=== PATIENT | male | born 1990 | race Caucasian/White ===

== ENCOUNTER 2018-05-14 15:47 | Emergency (ER) | payer OTHER ==
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
[2018-05-14 18:16] VITALS: BP 00/00
== END 2018-05-14 18:14 | disposition home or self-care (01) ==
LOC: ED 15:47
DX: M25.471 Effusion, right ankle (principal); V43.52XA Car driver injured in collision with other type car in traffic accident, initial encounter; Y92.410 Unspecified street and highway as the place of occurrence of the external cause
CPT/HCPCS: 99282

== ENCOUNTER 2018-06-07 18:48 | Emergency (ER) | payer OTHER ==
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
[2018-06-07 19:00] VITALS: BP 131/70
[2018-06-07] MEDS ORDERED: Cyclobenzaprine TAB* 10 MG PO ONE (19:08)
[2018-06-07] MEDS ORDERED: Ketorolac INJ* 60 MG/2 ML VIAL IM ONE (19:08)
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
--- NOTE | 2018-06-07 19:29 | RAD ---
INDICATION: Back pain COMPARISON: Thoracic spine May 19, 2018 TECHNIQUE: Routine 2 view imaging was performed FINDINGS: Bones: There are no acute bony findings. There are no significant osteoarthritic findings. Alignment: There is mild to moderate kyphoscoliosis Disc spaces: The disc spaces are well-maintained Soft tissues: There are no soft tissue abnormalities. IMPRESSION: KYPHOSCOLIOSIS. NO ACUTE FINDINGS
--- NOTE | 2018-06-07 19:29 | RAD ---
INDICATION: Back pain COMPARISON: None TECHNIQUE: Routine PA, lateral, and oblique imaging was performed . FINDINGS: Bones: There are no acute bony findings. There are no significant osteoarthritic findings. Alignment: Normal Disc spaces: There is minor levoscoliosis Soft tissues: There are no soft tissue abnormalities. IMPRESSION: MINOR LEVOSCOLIOSIS. NO ACUTE BONY FINDINGS.
== END 2018-06-07 19:45 | disposition home or self-care (01) ==
LOC: UCEAST 18:48
DX: M54.89 Other dorsalgia (principal)
CPT/HCPCS: 72070; 72100; 96372; 99212; A9270-GY; G0463; J1885

== ENCOUNTER → 2018-09-02 12:47 | Emergency (ER) | payer OTHER ==
[~2018-09-02 12:47] MED LIST: Ketorolac INJ* 60 MG/2 ML VIAL IM ONE; predniSONE TAB* 20 MG PO ONE; traMADol TAB* 50 MG PO ONE
[2018-09-02 13:31] LABS: Hematocrit 47 % (42-52); Hemoglobin 15.8 g/dl (14.0-18.0); Mean Corpuscular HGB Conc 34 g/dl (31-36); Mean Corpuscular Hemoglobin 30 pg (27-31); Mean Corpuscular Volume 89 fL (80-94); Platelet Count 182 10^3/ul (150-450); Red Cell Distribution Width 13 % (10.5-15); White Blood Count 13.6 10^3/ul (3.5-10.8)
[2018-09-02 13:47] LABS: EGFR Non-African American 98.5 (>60)
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
--- NOTE | 2018-09-02 14:33 | RAD ---
CLINICAL HISTORY: frontal sinus tenderness COMPARISON: None TECHNIQUE: Contiguous axial CT images were obtained through the paranasal sinuses, without intravenous contrast, with coronal and sagittal multiplanar reformations. FINDINGS: NASAL CAVITY: Septum: The nasal septum is deviated to the right. Right: Clear Left: Clear SINUSES AND DRAINAGE PATHWAYS: Frontal sinuses: There is an air-fluid within the left frontal sinus. There is mucosal thickening of the frontal sinus. Maxillary sinuses: There is mucosal thickening of the maxillary sinuses bilaterally.. Ethmoid sinuses: There is mucosal thickening of the ethmoid air cells. Ostiomeatal complex: There is effacement of the ostiomeatal unit on the left. Sphenoid sinuses: There is mucosal thickening with an air-fluid level within the sphenoid sinus. Anatomic variations: No significant variations. Orbits: Unremarkable. Anterior cranial fossa: Normal. Other findings: None. IMPRESSION: MODERATE SINUS MUCOSAL INFLAMMATORY DISEASE, WITH AIR-FLUID LEVELS IN THE SPHENOID AND FRONTAL SINUSES . IN THE CORRECT CLINICAL SETTING, THIS MAY REPRESENT ACUTE SINUSITIS
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
[2018-09-02 15:25] VITALS: BP 147/82
== END | disposition home or self-care (01) ==
LOC: ED 12:47
DX: J01.90 Acute sinusitis, unspecified (principal)
CPT/HCPCS: 36415; 70450; 70486; 80048; 85027; 86140; 99283; A9270-GY; J1885; J7512

== ENCOUNTER 2019-01-02 21:20 | Emergency (ER) | payer OTHER ==
[2019-01-02 21:30] VITALS: BP 128/88
[2019-01-02] MEDS ORDERED: Ketorolac INJ* 30 MG/ML 1 ML VIAL IM ONE (21:43)
[2019-01-02] MEDS ORDERED: Cyclobenzaprine TAB* 10 MG PO ONE (21:44)
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
--- NOTE | 2019-01-03 19:11 | UC ---
- Progress Note Progress Note: Radiologist reading of left shoulder x-ray from January 02, 2019 read as no acute fracture. Provider interpretation from that same date is the same therefore there is no discrepancy. Course/Dx - Diagnoses Provider Diagnoses: Left shoulder pain, Spasmodic torticollis, Right ear impacted cerumen Discharge - Sign-Out/Discharge Documenting (check all that apply): Patient Departure All imaging exams completed and their final reports reviewed: Yes - Discharge Plan Condition: Stable Disposition: HOME Prescriptions: Carbamide Peroxide 6.5% OTIC* [DEBROX 6.5% Otic*] 5 drop RIGHT EAR BID #1 bottle Cyclobenzaprine TAB* [Flexeril 10 MG TAB*] 10 mg PO TID PRN #20 tab PRN Reason: Spasms - Neck Ibuprofen TAB* [Motrin TAB* 800 MG] 800 mg PO Q6H PRN #30 tab PRN Reason: Pain methylPREDNISolone [Medrol Dosepak 4 MG*] 4 mg PO .SEE SHIRA INSTRUCTION #1 shira Patient Education Materials: Cerumen Impaction (ED), Spasmodic Torticollis (ED) , Shoulder Pain (ED) Forms: *Work Release Referrals: [facility] [Provider Group] - 3 Days Ramsey Mcfadden MD [Primary Care Provider] - 2 Days Additional Instructions: 1-Please take Ibuprofen PO q6-8hrs prn after meals to alleviate pain and swelling. Please start taking ibuprofen PO tomorrow since you were given a Toradol IM inj today. Take Medrol dose shira as directed to alleviate symptoms. 2-Please apply ice, keep your shoulder immobilized with the shoulder sling for 3-4 days and then resume movement slowly. Also use the soft collar to alleviate for comfort on your neck 3- Please f/u with Orthopedic from Sports Medicine or your PCP in 1 week is not improvement of symptoms for further evaluation and treatment. 4- Apply otic drops to help dissolve cerumen as directed below - Billing Disposition and Condition Condition: STABLE Disposition: Home
== END 2019-01-02 22:26 | disposition home or self-care (01) ==
LOC: UCEAST 21:20
DX: M25.512 Pain in left shoulder (principal); G24.3 Spasmodic torticollis; H61.21 Impacted cerumen, right ear
CPT/HCPCS: 96372; 99213; A9270-GY; G0463; J1885

== ENCOUNTER 2019-09-23 16:07 | Emergency (ER) | payer OTHER ==
--- NOTE | 2019-09-23 16:58 | ED ---
Psychiatric Complaint - HPI Summary HPI Summary: Patient is a 28 y/o M presenting to [facility] with complaints of depression and anxiety. Patient states that he does not feel safe but also reports that he has not had thoughts of harming himself. He states that he has been using marijuana frequently and endorses sleep disturbance and decreased appetite. Patient states that he has been admitted to psych unit previously, he does not recall diagnosis. Patient occasionally vapes. He additionally reports that he has engaged in risky sexual activity as well. He declines medications for his reported risky sexual activity. Patient is concerned for UTI as he has had testicular pain. Patient notes that he has been going to the gym twice daily as well. Per triage, "Pt states that he feels that things are out of control and he is doing things that he really shouldn't. Pt has relationship problems with x-girlfriend". Pt does not report any fever, chills, erythema of eyes, sore throat, CP, SOB, cough, abdominal pain, N/V, dysuria, hematuria, myalgia, edema , rash, or dizziness. Home medications and allergies are reviewed. - History Of Current Complaint Chief Complaint: EDMentalHealth Time Seen by Provider: 09/23/19 16:37 Hx Obtained From: Patient Onset/Duration: Still Present Timing: Constant Character: Depressed, Anxious Associated Signs And Symptoms: Positive: Sleep Disturbance, Appetite Change Has Suicidal: Reports: Thoughts - Patient states that he does not feel safe but also reports that he has not had thoughts of harming himself - Allergies/Home Medications Allergies/Adverse Reactions: Allergies Allergy/AdvReac Type Severity Reaction Status Date / Time No Known Allergies Allergy Verified 09/23/19 16:21 Home Medications: Home Medications NK [No Home Medications Reported] 09/23/19 [History Confirmed 09/23/19] PMH/Surg Hx/FS Hx/Imm Hx Endocrine/Hematology History: Denies: Hx Diabetes, Hx Sickle Cell Disease, Hx Thyroid Disease Cardiovascular History: Denies: Hx Hypertension, Hx Pacemaker/ICD Respiratory History: Denies: Hx Asthma, Hx Chronic Obstructive Pulmonary Disease (COPD), Hx Lung Cancer GI History: Denies: Hx Ileostomy, Hx Ulcer History: Denies: Hx Dialysis Sensory History: Denies: Hx Legally Blind, Hx Deafness Opthamlomology History: Denies: Hx Legally Blind Neurological History: Denies: Hx Dementia, Hx Headaches, Hx Migraine Infectious Disease History: No Infectious Disease History: Denies: Hx Hepatitis, Hx Human Immunodeficiency Virus (HIV), Traveled Outside the US in Last 30 Days - Family History Known Family History: Positive: Other - CA Negative: Cardiac Disease, Hypertension, Diabetes, Seizure Disorder - Social History Alcohol Use: Rare Hx Substance Use: No Substance Use Type: Reports: None Hx Tobacco Use: No Smoking Status (MU): Never Smoked Tobacco Review of Systems Negative: Fever, Chills Negative: Erythema Negative: Sore Throat Negative: Chest Pain Negative: Shortness Of Breath, Cough Negative: Abdominal Pain, Vomiting, Nausea Positive: pain - testicular . Negative: dysuria, hematuria Negative: Myalgia, Edema Negative: Rash Neurological: Other - negative - dizziness Positive: Anxious, Depressed All Other Systems Reviewed And Are Negative: Yes Physical Exam - Summary Physical Exam Summary: Constitutional: Well-developed, Well-nourished, Alert. (-) Distressed Skin: Warm, Dry HENT: Normocephalic; Atraumatic Eyes: Conjunctiva normal Neck: Musculoskeletal ROM normal neck. (-) JVD, (-) Stridor, (-) Tracheal deviation Cardio: Rhythm regular, rate normal, Heart sounds normal; Intact distal pulses; The pedal pulses are 2+ and symmetric. Radial pulses are 2+ and symmetric. (-) Murmur Pulmonary/Chest wall: Effort normal. (-) Respiratory distress, (-) Wheezes, (-) Rales Abd: Soft, (-) tenderness, (-) Distension, (-) Guarding, (-) Rebound Musculoskeletal: (-) Edema Lymph: (-) Cervical adenopathy Neuro: Alert, Oriented x3 Psych: Mood and affect Normal Triage Information Reviewed: Yes Vital Signs On Initial Exam: Initial Vitals Temp Pulse Resp BP Pulse Ox 98.3 F 82 20 127/79 98 09/23/19 16:17 09/23/19 16:17 09/23/19 16:17 09/23/19 16:17 09/23/19 16:17 Vital Signs Reviewed: Yes Procedures - Sedation Patient Received Moderate/Deep Sedation with Procedure: No Diagnostics - Vital Signs Vital Signs Temp Pulse Resp BP Pulse Ox 09/23/19 16:17 98.3 F 82 20 127/79 98 - Laboratory Result Diagrams: 09/23/19 17:36 11/01/19 17:36 Lab Statement: Any lab studies that have been ordered have been reviewed, and results considered in the medical decision making process. - Ultrasound TESTICULAR US Ultrasound Interpretation Completed By: Radiologist Summary of Ultrasound Findings: IMPRESSION: Unremarkable scrotal ultrasound. THIS REPORT WAS REVIEWED BY DR. MOSER. Course/Dx - Course Course Of Treatment: Patient is a 28 y/o M presenting to [facility] with complaints of depression and anxiety. Patient states that he does not feel safe but also reports that he has not had thoughts of harming himself. He states that he has been using marijuana frequently and endorses sleep disturbance and decreased appetite. Patient states that he has been admitted to psych unit previously, he does not recall diagnosis. Patient occasionally vapes. He additionally reports that he has engaged in risky sexual activity as well. He declines medications for his reported risky sexual activity. Patient is concerned for UTI as he has had testicular pain. Patient notes that he has been going to the gym twice daily as well. TESTICULAR US IMPRESSION: Unremarkable scrotal ultrasound. Bloodwork was obtained, abnormal values include absolute monos 0.9, glucose 110 , alk phos 33. UA showed trace ketones and positive urobilinogen. Tox screen was negative. Patient is medically cleared for [facility]. Patient is signed out to Dr. Barnett at 2030 09/23/19 pending [facility] and disposition. - Differential Dx/Clinical Impression Provider Diagnosis: Depression Discharge ED - Sign-Out/Discharge Documenting (check all that apply): Sign-Out Patient Signing out patient TO: Delroy Barnett - Discharge Plan Condition: Stable Disposition: HOME Referrals: Ramsey Mcfadden MD [Primary Care Provider] - - Billing Disposition and Condition Condition: STABLE Disposition: Home - Attestation Statements Document Initiated by Scribe: Yes Documenting Scribe: ELSA BARRERA Provider For Whom Kyle is Documenting (Include Credential): CEDRICK MOSER MD Scribe Attestation: ELSA Espinosa scribed for CEDRICK MOSER MD on 09/26/19 at 0832. Scribe Documentation Reviewed: Yes Provider Attestation: The documentation as recorded by the ELSA evans accurately reflects the service I personally performed and the decisions made by me, CEDRICK MOSER MD Status of Scribe Document: Viewed
[2019-09-23 17:46] LABS: ABS Basophils 0.1 10^3/ul (0-0.2); ABS Eosinophils 0.1 10^3/ul (0-0.6); ABS Lymphocytes 1.9 10^3/ul (1.0-4.8); ABS Monocytes 0.9 10^3/ul (0-0.8); ABS Neutrophils 6.9 10^3/ul (1.5-7.7); Eosinophil % 1.3 %; Hematocrit 48 % (42-52); Hemoglobin 15.7 g/dL (14.0-18.0); Lymphocyte % 19.1 %; Mean Corpuscular HGB Conc 33 g/dL (31-36); Mean Corpuscular Hemoglobin 30 pg (27-31); Mean Corpuscular Volume 91 fL (80-94); Mean Platelet Volume 9.4 fL (7.4-10.4); Nucleated Red Blood Cells % 0.1; Platelet Count 195 10^3/uL (150-450); Red Blood Count 5.24 10^6 /uL (4.18-5.48); Red Cell Distribution Width 14 % (10-15); White Blood Count 9.8 10^3/uL (3.5-10.8)
[2019-09-23 18:01] LABS: ALT 47 U/L (7-52); AST 24 U/L (13-39); Albumin 4.7 g/dL (3.2-5.2); Albumin/Globulin Ratio 1.7 (1-3); Alkaline Phosphatase 33 U/L (34-104); Anion Gap 4 mmol/L (2-11); BUN/Creatinine Ratio 9.9 (8-20); Blood Urea Nitrogen 10 mg/dL (6-24); CO2 Carbon Dioxide 28 mmol/L (22-32); Calcium 10.1 mg/dL (8.6-10.3); Chloride 106 mmol/L (101-111); EGFR African American 104.9 (>60); EGFR Non-African American 86.7 (>60); Globulin 2.8 g/dL (2-4); Glucose 110 mg/dL (70-100); Potassium 4.5 mmol/L (3.5-5.0); Sodium 138 mmol/L (135-145); Total Protein 7.5 g/dL (6.4-8.9)
[2019-09-23 18:38] LABS: Urine Appearance Cloudy; Urine Bilirubin Negative (Negative); Urine Blood Negative (Negative); Urine Color Yellow; Urine Glucose Negative (Negative); Urine Ketones Trace (Negative); Urine Nitrite Negative (Negative); Urine Protein Negative (Negative); Urine Specific Gravity 1.024 (1.010-1.030); Urine Urobilinogen Positive (Negative)
[2019-09-23 18:51] LABS: Alcohol < 10 mg/dL (<10); Salicylate < 2.50 mg/dL (<30)
[2019-09-23 19:02] LABS: Urine Benzodiazepine Screen None Detected (None Detect); Urine Opiates Screen None Detected (None Detect)
[2019-09-23 19:04] LABS: TSH (Thyroid Stimulating Horm) 0.79 mcIU/mL (0.34-5.60)
[2019-09-23 19:11] LABS: Acetaminophen < 15 mcg/mL
--- NOTE | 2019-09-23 21:35 | ED ---
Progress - Progress Note Progress Note: Receiving sign-out from Dr. Chou at shift change 1900 pending [facility] and Dispo. [facility] discharged the patient with a diagnosis of unspecified depression disorder, per Dr. Durham, Psychiatry. - Consult/PCP Time Called: 06:00 Course/Dx - Course Course Of Treatment: Receiving sign-out from Dr. Chou at shift change 1900 pending [facility] and Disposition. [facility] discharged the patient with a diagnosis of unspecified depression disorder, per Dr. Durham, Psychiatry. - Diagnoses Provider Diagnoses: Depression Discharge ED - Sign-Out/Discharge Documenting (check all that apply): Patient Departure - Discharge, per [facility] - Discharge Plan Condition: Stable Disposition: HOME Referrals: Ramsey Mcfadden MD [Primary Care Provider] - - Billing Disposition and Condition Condition: STABLE Disposition: Home - Attestation Statements Document Initiated by Kyle: Yes Documenting Scribe: Adal Oliveros Provider For Whom Kyle is Documenting (Include Credential): Delroy Barnett MD Scribe Attestation: Adal Espinosa, coltibed for Delroy Barnett MD on 09/28/19 at 1751. Scribe Documentation Reviewed: Yes Provider Attestation: The documentation as recorded by the Adal evans accurately reflects the service I personally performed and the decisions made by , Delroy Barnett MD Status of Scribe Document: Viewed
[2019-09-23 22:08] VITALS: BP 117/70
== END 2019-09-23 22:07 | disposition home or self-care (01) ==
LOC: ED 16:07
DX: F32.9 Major depressive disorder, single episode, unspecified (principal); F41.9 Anxiety disorder, unspecified
CPT/HCPCS: 36415; 76870; 80053; 80307; 80320; 80329; 81003; 84443; 85025; 99284; G0480

== ENCOUNTER 2019-09-28 14:13 | Emergency (ER) | payer OTHER ==
--- NOTE | 2019-09-28 14:49 | ED ---
Complex/Multi-Sys Presentation - HPI Summary HPI Summary: This patient is a 28 year old M presenting to [facility] via EMS with a chief complaint of lethargy and weakness since last night. Pt states he went to [facility]. Pt did not get a flu shot. The patient rates the pain 3/10 in severity. Symptoms aggravated by nothing. Symptoms alleviated by nothing. Patient reports ABD pain, testicular pain, generalized myalgia, subjective chills, fever, lightheaded, cough, nausea. Patient denies vomiting. Pt occasionally smokes marijuana and restarted cigarette smoking. - History Of Current Complaint Chief Complaint: EDGeneral Time Seen by Provider: 09/28/19 14:24 Hx Obtained From: Patient Onset/Duration: Sudden Onset, Lasting Days - 1, Still Present Timing: Constant Severity Currently: Mild Severity Initially: Mild Aggravating Factor(s): nothing Alleviating Factor(s): nothing Associated Signs And Symptoms: Positive: Weakness, Cough, Nausea, Abdominal Pain , Fever, Other - positive - lethargy, testicular pain, generalized myalgia, subjective chills, lightheaded. Negative: Vomiting - Allergies/Home Medications Allergies/Adverse Reactions: Allergies Allergy/AdvReac Type Severity Reaction Status Date / Time No Known Allergies Allergy Verified 09/28/19 14:37 PMH/Surg Hx/FS Hx/Imm Hx Previously Healthy: No Endocrine/Hematology History: Denies: Hx Diabetes, Hx Sickle Cell Disease, Hx Thyroid Disease Cardiovascular History: Denies: Hx Hypertension, Hx Pacemaker/ICD Respiratory History: Denies: Hx Asthma, Hx Chronic Obstructive Pulmonary Disease (COPD), Hx Lung Cancer GI History: Denies: Hx Ileostomy, Hx Ulcer History: Denies: Hx Dialysis Sensory History: Denies: Hx Legally Blind, Hx Deafness Opthamlomology History: Denies: Hx Legally Blind Neurological History: Denies: Hx Dementia, Hx Headaches, Hx Migraine Psychiatric History: Denies: Hx Eating Disorder, Hx of Violent Episodes Against Others - Surgical History Surgical History: None Infectious Disease History: No Infectious Disease History: Denies: Hx Hepatitis, Hx Human Immunodeficiency Virus (HIV), Traveled Outside the US in Last 30 Days - Family History Known Family History: Positive: None - Pt denies FMHX, Other - CA Negative: Cardiac Disease, Hypertension, Diabetes, Seizure Disorder - Social History Alcohol Use: Rare Hx Substance Use: No Substance Use Type: Reports: None Hx Tobacco Use: No Smoking Status (MU): Light Every Day Tobacco Smoker Review of Systems Constitutional: Other - positive - lethargy Positive: Fever, Chills - subjective Positive: Cough Positive: Abdominal Pain, Nausea. Negative: Vomiting Genitourinary: Other - positive - testicular pain Positive: Myalgia - generalized Neurological: Other - positive - lightheaded Positive: Weakness All Other Systems Reviewed And Are Negative: Yes Physical Exam - Summary Physical Exam Summary: Constitutional: Well-developed, Well-nourished, Alert. (-) Distressed Skin: Warm, Dry HENT: Normocephalic; Atraumatic. Dry oral mucosa. Eyes: Conjunctiva normal Neck: Musculoskeletal ROM normal neck. (-) JVD, (-) Stridor, (-) Tracheal deviation Cardio: Rhythm regular, rate normal, Heart sounds normal; Intact distal pulses; The pedal pulses are 2+ and symmetric. Radial pulses are 2+ and symmetric. Pulmonary/Chest wall: Effort normal. (-) Respiratory distress, (-) Wheezes, (-) Rales. Productive cough Abd: Soft, (-) tenderness, (-) Distension, (-) Guarding, (-) Rebound Musculoskeletal: (-) Edema Neuro: Alert, Oriented x3 Psych: Mood and affect Normal Triage Information Reviewed: Yes Vital Signs On Initial Exam: Initial Vitals Temp Pulse Resp BP Pulse Ox 99.3 F 94 20 104/63 98 09/28/19 14:23 09/28/19 14:23 09/28/19 14:23 09/28/19 14:23 09/28/19 14:23 Vital Signs Reviewed: Yes Procedures - Sedation Patient Received Moderate/Deep Sedation with Procedure: No Diagnostics - Vital Signs Vital Signs Temp Pulse Resp BP Pulse Ox 09/28/19 14:23 99.3 F 94 20 104/63 98 - Laboratory Lab Statement: Any lab studies that have been ordered have been reviewed, and results considered in the medical decision making process. Complex Multi-Symp Course/Dx Course Of Treatment: This patient is a 28 year old M presenting to [facility] via EMS with a chief complaint of lethargy and weakness since last night. Pt states he went to [facility]. Pt did not get a flu shot. The patient rates the pain 3/10 in severity. Symptoms aggravated by nothing. Symptoms alleviated by nothing. Patient reports ABD pain, testicular pain, generalized myalgia, subjective chills, fever, lightheaded, cough, nausea. Patient denies vomiting. Pt occasionally smokes marijuana and restarted cigarette smoking. Physical exam shows dry oral mucosa and productive cough. During ED course, pt was given Lactated Ringers. Dx are viral syndrome and dehydration. Pt will be discharged. - Diagnoses Provider Diagnoses: Viral syndrome, Dehydration Discharge ED - Sign-Out/Discharge Documenting (check all that apply): Patient Departure - discharge - Discharge Plan Condition: Improved Disposition: HOME Patient Education Materials: Dehydration (ED), Viral Syndrome (ED) Referrals: Ramsey Mcfadden MD [Primary Care Provider] - - Billing Disposition and Condition Condition: IMPROVED Disposition: Home - Attestation Statements Document Initiated by Kyle: Yes Documenting Scribe: Keanu Matthews Provider For Whom Scribe is Documenting (Include Credential): Dr. Clifford Wei MD Scribe Attestation: Keanu Espinosa scribed for Dr. Cliffodr Wei MD on 09/29/19 at 1001. Scribe Documentation Reviewed: Yes Provider Attestation: The documentation as recorded by the Keanu evans accurately reflects the service I personally performed and the decisions made by me, Dr. Clifford Wei MD Status of Scribe Document: Viewed
[2019-09-28] MEDS ORDERED: Ketorolac INJ* 30 MG/ML 1 ML VIAL IV PUSH ONE (15:00)
[2019-09-28] MEDS ORDERED: Ondansetron INJ* 2 MG/ML VIAL IV ONE (15:00)
[2019-09-28] MEDS ORDERED: Famotidine IV* 10 MG/ML 2 ML (20 mg) IV SLOW PU ONE (15:00)
[2019-09-28] MEDS ORDERED: Lactated Ringers 1000 ML Bag* 1,000 ML IV ONE ×2 (15:00→17:05)
[2019-09-28 18:42] VITALS: BP 132/64
== END 2019-09-28 18:35 | disposition home or self-care (01) ==
LOC: ED 14:13
DX: B34.9 Viral infection, unspecified (principal); E86.0 Dehydration; F17.210 Nicotine dependence, cigarettes, uncomplicated
CPT/HCPCS: 96374; 96375; 99283; J1885; J2405

== ENCOUNTER 2019-10-07 12:20 | Emergency (ER) | payer OTHER ==
--- NOTE | 2019-10-07 12:36 | ED ---
Psychiatric Complaint - HPI Summary HPI Summary: This pt is a 29 y/o male, accompanied by mother, presenting to [facility] c/o worsening depression since 3 weeks ago. Pt has had depression for many months but had a triggering event occur 3 weeks ago where girlfriend broke up with him. Pt reports his appetite is all over the place and has sleep disturbance. Per triage note, "Pt states he has been having thoughts of suicide for the last few weeks. Denies any plans." When asked if he is having SI he notes he doesn't want to think or talk about it. Per mother pt has been seen in the ED twice within the past 1 week for depression. - History Of Current Complaint Chief Complaint: EDMentalHealth Time Seen by Provider: 10/07/19 12:26 Hx Obtained From: Patient, Family/Coin Machine Service Repairer - Mother Onset/Duration: Lasting Weeks, Still Present, Worse Since - 3 weeks ago Timing: Weeks Severity Currently: Moderate Character: Depressed Aggravating Factor(s): Recent Stress Alleviating Factor(s): Nothing Associated Signs And Symptoms: Positive: Sleep Disturbance, Appetite Change Related History: Positive For: Prior Psychiatric Issues Has Suicidal: Reports: Thoughts. Denies: With A Plan Has Homicidal: Denies: Thoughts, With A Plan Recent Stressor(s): girlfriend broke up with pt. - Allergies/Home Medications Allergies/Adverse Reactions: Allergies Allergy/AdvReac Type Severity Reaction Status Date / Time No Known Allergies Allergy Verified 09/28/19 14:37 Home Medications: Home Medications NK [No Home Medications Reported] 10/07/19 [History Confirmed 10/07/19] PMH/Surg Hx/FS Hx/Imm Hx Endocrine/Hematology History: Denies: Hx Diabetes, Hx Sickle Cell Disease, Hx Thyroid Disease Cardiovascular History: Denies: Hx Hypertension, Hx Pacemaker/ICD Respiratory History: Denies: Hx Asthma, Hx Chronic Obstructive Pulmonary Disease (COPD), Hx Lung Cancer GI History: Denies: Hx Ileostomy, Hx Ulcer History: Denies: Hx Dialysis Sensory History: Denies: Hx Legally Blind, Hx Deafness Opthamlomology History: Denies: Hx Legally Blind Neurological History: Denies: Hx Dementia, Hx Headaches, Hx Migraine Psychiatric History: Reports: Hx Depression Denies: Hx Eating Disorder, Hx of Violent Episodes Against Others Infectious Disease History: No Infectious Disease History: Denies: Hx Hepatitis, Hx Human Immunodeficiency Virus (HIV), Traveled Outside the [place] in Last 30 Days - Family History Known Family History: Positive: Other - CA Negative: Cardiac Disease, Hypertension, Diabetes, Seizure Disorder Family History: Father with anxiety. Maternal grandfather with anxiety. - Social History Alcohol Use: Rare Hx Substance Use: No Substance Use Type: Reports: None Hx Tobacco Use: No Smoking Status (MU): Light Every Day Tobacco Smoker Review of Systems Constitutional: Other - POSITIVE: appetite change, sleep disturbance Negative: Fever ENT: Negative Cardiovascular: Negative Respiratory: Negative Positive: Depressed All Other Systems Reviewed And Are Negative: Yes Physical Exam - Summary Physical Exam Summary: Constitutional: Well-developed, Well-nourished, Alert. (-) Distressed Skin: Warm, Dry HENT: Normocephalic; Atraumatic Eyes: Conjunctiva normal Neck: Musculoskeletal ROM normal neck. (-) JVD, (-) Stridor, (-) Nuchal rigidity Cardio: Rhythm regular, rate normal, Heart sounds normal; Intact distal pulses; Radial pulses are 2+ and symmetric. (-) Murmur Pulmonary/Chest wall: Effort normal. (-) Respiratory distress, (-) Wheezes, (-) Rales Abd: Soft, (-) tenderness, (-) Distension, (-) Guarding, (-) Rebound Musculoskeletal: (-) Edema Lymph: (-) Cervical adenopathy Neuro: Alert, Oriented x3 Psych: Anxious. Triage Information Reviewed: Yes Vital Signs On Initial Exam: Initial Vitals Temp Pulse Resp BP Pulse Ox 97.9 F 69 17 123/71 95 10/07/19 12:21 10/07/19 12:21 10/07/19 12:21 10/07/19 12:21 10/07/19 12:21 Vital Signs Reviewed: Yes Procedures - Sedation Patient Received Moderate/Deep Sedation with Procedure: No Diagnostics - Vital Signs Vital Signs Temp Pulse Resp BP Pulse Ox 10/07/19 12:21 97.9 F 69 17 123/71 95 - Laboratory Result Diagrams: 10/07/19 12:51 10/07/19 12:51 Lab Statement: Any lab studies that have been ordered have been reviewed, and results considered in the medical decision making process. Course/Dx - Course Course Of Treatment: 29 y/o male p/w worsening depressive symptoms. - team to eval. Pt will be signed out to Dr. Barnett pending mental health evaluation and disposition. - Differential Dx/Clinical Impression Provider Diagnosis: Depression Discharge ED - Sign-Out/Discharge Documenting (check all that apply): Sign-Out Patient Signing out patient TO: Delroy Barnett - pending [facility] - Discharge Plan Condition: Stable Referrals: Gifty Zhong MD [Primary Care Provider] - - Billing Disposition and Condition Condition: STABLE - Attestation Statements Document Initiated by Scribe: Yes Documenting Scribe: Karon Neslon Provider For Whom Scribe is Documenting (Include Credential): Dakota Montesinos MD Scribe Attestation: Karon Espinosa, scribed for Dakota Montesinos MD on 10/07/19 at 1858. Scribe Documentation Reviewed: Yes Provider Attestation: The documentation as recorded by the scribeKaron accurately reflects the service I personally performed and the decisions made by Dakota nesbitt MD Status of Scribe Document: Viewed
[2019-10-07 13:14] LABS: Hematocrit 44 % (42-52); Hemoglobin 14.8 g/dL (14.0-18.0); Mean Corpuscular HGB Conc 34 g/dL (31-36); Mean Corpuscular Hemoglobin 31 pg (27-31); Mean Corpuscular Volume 90 fL (80-94); Mean Platelet Volume 8.9 fL (7.4-10.4); Platelet Count 280 10^3/uL (150-450); Red Blood Count 4.84 10^6 /uL (4.18-5.48); Red Cell Distribution Width 14 % (10-15); White Blood Count 10.1 10^3/uL (3.5-10.8)
--- OUTSIDE RECORDS SUMMARY | 2019-10-07 13:33 | XMS REPORT | Continuity of Care Document ---
:1990 External Reference #:[id number] Author Name Gifty Zhong M.D., FACP (transmitted by agent of provider Madelaine Joyner ) Address [address] [place] [address] Care Team Providers Name Role Phone Ramsey Mcfadden MD - Family Care Team Information Rfp Writer Medicine Problems Active Problems Provider Date Chronic fatigue syndrome Josemanuel Stuart M.D. Onset: 07/20/2018 Hypersomnia with sleep apnea Josemanuel Stuart M.D. Onset: 07/20/2018 Difficulty breathing Josemanuel Stuart M.D. Onset: 07/20/2018 Concussion with loss of consciousness Josemanuel Stuart M.D. Onset: 2017 Social History Type Date Description Comments Sex Unknown ETOH Use Drinks 6 Alcoholic Pt states 8 a week Beverages Per Week Tobacco Use Start: Unknown Patient is a current smoker, smokes every day Smoking Status Reviewed: 09/29/19 Patient is a current smoker, smokes every day Exercise Swims 2 times a week Type/Frequency Allergies, Adverse Reactions, Alerts Description No Known Drug Allergies Medications Active Medications SIG Qnty Indications Ordering Provider Date Doxycycline 1 cap by mouth 14caps S10.86xA Gifty Zhong M.D., 09/29/2019 Monohydrate twice a day FACP 100mg Capsules Cpap Mask And cpap supplies - 1units Josemanuel Stuart, 10/05/2018 Supplies Brooke marks Device cushion, tubing, filters, for sleep apnea Immunizations Description No Information Available Vital Signs Date Vital Result Comment 09/29/2019 11:19am Height 66 inches 5'6" Weight 240.00 lb Heart Rate 100 /min BP Systolic Sitting 118 mmHg BP Diastolic Sitting 62 mmHg Body Temperature 101.2 F O2 % BldC Oximetry 98 % BMI (Body Mass Index) 38.7 kg/m2 07/20/2018 8:24am Height 66 inches 5'6" Weight 260.00 lb Heart Rate 64 /min BP Systolic 118 mmHg BP Diastolic 72 mmHg Respiratory Rate 16 /min BMI (Body Mass Index) 42.0 kg/m2 Results Description No Information Available Procedures Description No Information Available Medical Devices Description No Information Available Encounters Description No Information Available Assessments Date Code Description Provider 09/29/2019 B34.9 Viral infection, unspecified [facility] M.D[facility] 09/29/2019 S10.86xA Insect bite of other specified part of Gifty Zhong M.D. , [facility] neck, initial encounter Plan of Treatment 09/29/2019 - Gifty Zhong M.D., FACPB34.9 Viral infection, unspecifiedComments: Today you were seen in follow up for an acute illness that seems most consistent with a viral syndrome. We sent a swab to test for influenza and I will contact you with those results when they are available in 2-3 days. I recommend that you take ibuprofen or acetaminophen or naproxen to relieve yourmuscle aches and reduce your fever.It is very important that you maintain adequate hydration. I recommend that you drink plenty of liquids; you should be urinating nearly hourly and if the urine appears dark, you should increase your fluid intake.Follow up:If you are not feeling like you are improving over the next 2-3 days please call back or return to the Emergency Department. I would like to see you back in the clinic early next week.S10.86xA Insect bite of other specified part of neck, initial encounterNew Medication:Doxycycline Monohydrate 100 mg - 1 cap by mouth twice a dayComments:It is not clear to me if the small black dot under your chin is a tick bite. We will draw bloodworkto test for Lyme disease today.Since you mention having recently removed another tick from your body, I think it is reasonable to treat you empirically with an antibiotic.I have called in a prescription for doxycycline to your pharmacy.Follow up:Next week. Functional Status Description No Information Available Mental Status Description No Information Available Referrals Description No Information Available
[2019-10-07 13:45] LABS: ABS Basophils 0.1 10^3/ul (0-0.2); ABS Eosinophils 0.1 10^3/ul (0-0.6); ABS Lymphocytes 2.4 10^3/ul (1.0-4.8); ABS Monocytes 0.9 10^3/ul (0-0.8); ABS Neutrophils 6.7 10^3/ul (1.5-7.7); Eosinophil % 0.8 %; Lymphocyte % 23.4 %
[2019-10-07 13:49] LABS: ALT 128 U/L (7-52); AST 32 U/L (13-39); Albumin 4.3 g/dL (3.2-5.2); Albumin/Globulin Ratio 1.6 (1-3); Alkaline Phosphatase 36 U/L (34-104); Anion Gap 3 mmol/L (2-11); BUN/Creatinine Ratio 15.4 (8-20); Blood Urea Nitrogen 14 mg/dL (6-24); CO2 Carbon Dioxide 29 mmol/L (22-32); Calcium 9.5 mg/dL (8.6-10.3); Chloride 105 mmol/L (101-111); EGFR African American 117.6 (>60); EGFR Non-African American 97.2 (>60); Globulin 2.7 g/dL (2-4); Glucose 85 mg/dL (70-100); Potassium 4.1 mmol/L (3.5-5.0); Sodium 137 mmol/L (135-145)
[2019-10-07 13:58] LABS: Acetaminophen < 15 mcg/mL; Alcohol < 10 mg/dL (<10); Salicylate < 2.50 mg/dL (<30)
[2019-10-07 14:14] LABS: TSH (Thyroid Stimulating Horm) 0.71 mcIU/mL (0.34-5.60)
[2019-10-07 16:41] LABS: Urine Appearance Clear; Urine Bilirubin Negative (Negative); Urine Blood Negative (Negative); Urine Color Yellow; Urine Glucose Negative (Negative); Urine Ketones Negative (Negative); Urine Nitrite Negative (Negative); Urine Protein Negative (Negative); Urine Specific Gravity 1.008 (1.010-1.030); Urine Urobilinogen Negative (Negative)
[2019-10-07 17:00] LABS: Urine Benzodiazepine Screen None Detected (None Detect); Urine Opiates Screen None Detected (None Detect)
--- NOTE | 2019-10-07 19:06 | ED ---
Progress - Progress Note Progress Note: This pt is a sign out to Dr. Barnett from Dr. Montesinos at shift change 1900 pending a MHE and disposition. - Consult/PCP Time Called: 13:00 Course/Dx - Course Course Of Treatment: This pt is a sign out to Dr. Barnett from Dr. Montesinos at shift change 1900 10/07/19 pending a MHE and disposition. Per Dr. Joseph, psychiatrist, the pt will be discharged home with a Dx of a depressive episode unspecified and be given hydroxizine for nausea. He will check into TCM for further treatment. - Diagnoses Provider Diagnoses: Depression - Provider Notifications Discussed Care Of Patient With: Omar Joseph Time Discussed With Above Provider: 20:05 Instructed by Provider To: Other - Per Dr. Joseph, the pt will be discharged home with a Dx of a depressive episode unspecified and be given hydroxizine for nausea. He will check into TCM for further treatment. Discharge ED - Sign-Out/Discharge Documenting (check all that apply): Patient Departure - discharge - Discharge Plan Condition: Stable Disposition: HOME Prescriptions: hydrOXYzine pamoate [Vistaril] 25 mg PO TID PRN #40 capsule PRN Reason: Anxiety Referrals: Gifty Zhong MD [Primary Care Provider] - - Billing Disposition and Condition Condition: STABLE Disposition: Home - Attestation Statements Document Initiated by Kyle: Yes Documenting Scribe: Harvey Quintanilla Provider For Whom Kyle is Documenting (Include Credential): Delroy Barnett MD Scribe Attestation: Harvey Espinosa scribed for Delroy Barnett MD on 10/08/19 at 1824. Scribe Documentation Reviewed: Yes Provider Attestation: The documentation as recorded by the Harvey evans accurately reflects the service I personally performed and the decisions made by , Delroy Barnett MD Status of Scribenedina Document: Viewed
[2019-10-07 20:59] VITALS: BP 139/70
== END 2019-10-07 20:20 | disposition home or self-care (01) ==
LOC: ED 12:20
DX: F32.9 Major depressive disorder, single episode, unspecified (principal); F17.200 Nicotine dependence, unspecified, uncomplicated
CPT/HCPCS: 36415; 80053; 80307; 80320; 80329; 81003; 84443; 85025; 99284; G0480

== ENCOUNTER 2020-01-06 11:26 | Emergency (ER) | payer OTHER ==
--- OUTSIDE RECORDS SUMMARY | 2020-01-06 11:33 | XMS REPORT | Continuity of Care Document ---
:1990 External Reference #:[id number] Author Name Gifty Zhong M.D., FACP (transmitted by agent of provider Tahira Rivera ) Address [address] [facility], [place] [address] Care Team Providers Name Role Phone Ramsey Mcfadden MD - Family Care Team Information [facility] Pipe Supervisor Medicine Gifty Zhong MD - Internal Medicine Care Team Information Corncob Pipe Supervisor [phone] Problems Active Problems Provider Date Chronic fatigue syndrome Josemanuel Stuart M.D. Onset: 07/20/2018 Hypersomnia with sleep apnea Josemanuel Stuart M.D. Onset: 07/20/2018 Difficulty breathing Josemanuel Stuart M.D. Onset: 07/20/2018 Concussion with loss of consciousness Josemanuel Stuart M.D. Onset: 2017 Tobacco user Gifty Zhong M.D., FACP Onset: 12/23/2019 Anxiety state Gifty Zhong M.D., FACP Onset: 12/23/2019 Social History Type Date Description Comments Sex Unknown ETOH Use Drinks 6 Alcoholic Pt states 8 a week Beverages Per Week Tobacco Use Start: Unknown Patient is a current smoker, smokes every day Smoking Status Reviewed: 12/23/19 Patient is a current smoker, smokes every day Exercise Swims 2 times a week Type/Frequency Allergies, Adverse Reactions, Alerts Description No Known Drug Allergies Medications Active Medications SIG Qnty Indications Ordering Provider Date Flovent HFA 1-2 puffs twice 10.600gm R05 Gifty Zhong M.D., 12/23/2019 44mcg/Act daily for 2-3 FACP Aerosol weeks Benzonatate 1-2 by mouth 30caps R05 Gifty Zhong M.D., 12/23/2019 100mg every 8 hours FACP Capsules as needed Bupropion sig 1 by mouth 30tabs F41.9 Gifty Zhong M.D., 12/23/2019 Hydrochloride ER in the am FACP (SR) 100mg Tablets ER 12HR Trazodone HCL take 1/2-1 30tabs G47.00 Gifty Zhong M.D., 12/23/2019 50mg tablets by FACP Tablets mouth at bedtime as needed for isomnia Alprazolam take 1/2 to 1 14tabs F41.9 Gifty Zhong M.D., 11/17/2019 0.25mg (one-half to FACP Tablets one) tablet by mouth three times daily as needed . do not exceed 2 per 24 hours Escitalopram Oxalate 1 by mouth 30tabs F41.9 Gifty Zhong M.D., 11/17/2019 every day FACP 10mg Tablets Cpap [facility] Josemanuel Stuart, 10/05/2018 Supplies Brooke marks Device cushion, tubing, filters, for sleep apnea History Medications Doxycycline 1 cap by mouth 14caps S10.86xA Martha Parra, 09/29/2019 - Monohydrate twice a day M.D. 10/27/2019 100mg Capsules Immunizations Description No Information Available Vital Signs Date Vital Result Comment 12/23/2019 3:35pm Height 66 inches 5'6" Weight 229.00 lb Heart Rate 72 /min BP Systolic Sitting 120 mmHg Lue lg cuff BP Diastolic Sitting 68 mmHg Lue lg cuff O2 % BldC Oximetry 95 % BMI (Body Mass Index) 37.0 kg/m2 11/17/2019 3:40pm Height 66 inches 5'6" Weight 229.00 lb Heart Rate 75 /min BP Systolic Sitting 137 mmHg BP Diastolic Sitting 69 mmHg O2 % BldC Oximetry 95 % BMI (Body Mass Index) 37.0 kg/m2 Results Test Acquired Date Facility Test Result H/L Range Note CBC Auto 2019 [facility] White Blood 10.1 10^3/uL Normal 3.5-10.[address] [place] [address] [phone] Red Blood Count 4.84 10^6/uL Normal 4.18-5.48 Hemoglobin 14.8 g/dL Normal 14.0-18.0 Hematocrit 44 % Normal 42-52 Mean Corpuscular Volume 90 fL Normal 80-94 Mean Corpuscular Hemoglobin 31 pg Normal 27-31 Mean Corpuscular HGB Conc 34 g/dL Normal 31-36 Red Cell Distribution Width 14 % Normal 10-15 Platelet Count 280 10^3/uL Normal 150-450 Mean Platelet Volume 8.9 fL Normal 7.4-10.4 Abs Neutrophils 6.7 10^3/uL Normal 1.5-7.7 Abs Lymphocytes 2.4 10^3/uL Normal 1.0-4.8 Abs Monocytes 0.9 10^3/uL High 0-0.8 Abs Eosinophils 0.1 10^3/uL Normal 0-0.6 Abs Basophils 0.1 10^3/uL Normal 0-0.2 Abs Nucleated RBC 0.0 10^3/uL Granulocyte % 65.8 % Lymphocyte % 23.4 % Monocyte % 9.4 % Eosinophil % 0.8 % Basophil % 0.6 % Nucleated Red Blood Cells % 0.0 Comp Metabolic 2019 [facility] Sodium 137 mmol/L Normal 135-[address] [place] [address] [phone] Potassium 4.1 mmol/L Normal 3.5-5.0 Chloride 105 mmol/L Normal 101-111 Co2 Carbon Dioxide 29 mmol/L Normal 22-32 Anion Gap 3 mmol/L Normal 2-11 Glucose 85 mg/dL Normal 70-100 Blood Urea Nitrogen 14 mg/dL Normal 6-24 Creatinine 0.91 mg/dL Normal 0.67-1.17 BUN/Creatinine Ratio 15.4 Normal 8-20 Calcium 9.5 mg/dL Normal 8.6-10.3 Total Protein 7.0 g/dL Normal 6.4-8.9 Albumin 4.3 g/dL Normal 3.2-5.2 Globulin 2.7 g/dL Normal 2-4 Albumin/Globulin Ratio 1.6 Normal 1-3 Total Bilirubin 1.00 mg/dL Normal 0.2-1.0 Alkaline Phosphatase 36 U/L Normal 34-104 Alt 128 U/L High 7-52 Ast 32 U/L Normal 13-39 Egfr Non- 97.2 >60 Egfr 117.6 >60 1 Laboratory test 2019 [facility] Acetaminophen < 15 g/mL [address] [place] [address] [phone] Alcohol < 10 mg/dL Normal <10 Salicylate < 2.50 mg/dL <30 TSH (Thyroid Stim Horm) 0.71 mcIU/mL Normal 0.34-5.60 Urinalysis Profile 2019 [facility] Urine Color Yellow [address] [place] [address] [phone] Urine Appearance Clear Urine Specific Reyno 1.008 Low 1.010-1.030 Urine pH 7.0 Normal 5-9 Urine Urobilinogen Negative Negative Urine Ketones Negative Negative Urine Protein Negative Negative Urine Leukocytes Negative Negative Urine Blood Negative Negative Urine Nitrite Negative Negative Urine Bilirubin Negative Negative Urine Glucose Negative Negative Urine Drug 2019 [facility] Urine None Detected None Detect SCR ED & [address] [place] [address] Screen [phone] Urine Barbiturates Screen None Detected None Detect Urine Benzodiazepine Screen None Detected None Detect Urine Cannabinoids Screen None Detected None Detect Urine Opiates Screen None Detected None Detect Urine Phencyclidine Screen None Detected None Detect 3 Urine Cocaine Screen None Detected None Detect Laboratory test 09/29/2019 [facility] Lyme Screen W/ Negative Negative finding [address] [place] [address] [phone] Influenza A & B 09/29/2019 [facility] Flu AB (SEE NOTE) [address] [place] [address] [phone] Influenza A Molecular NEGATIVE Negative 5 Influenza B Molecular NEGATIVE Negative 1 Because ethnic data is not always readily available, this report includes an eGFR for both -Americans and non- Americans. The National Kidney Disease Education Program (NKDEP) does not endorse the use of the MDRD equation for patients that are not between the ages of 18 and 70, are , have extremes of body size, muscle mass, or nutritional status, or are non- or non-. According to the National Kidney Foundation, irrespective of diagnosis, the stage of the disease is based on the level of kidney function: Stage Description GFR(mL/min/1.73 m(2)) 1 Kidney damage with normal or decreased GFR 90 2 Kidney damage with mild decrease in GFR 60-89 3 Moderate decrease in GFR 30-59 4 Severe decrease in GFR 15-29 5 Kidney failure <15 (or dialysis) 2 Therapeutic concentration: <50 ug/mL Toxic concentration: >120 ug/mL 3 The urine specimen was tested at the listed cutoffs: Drug class test level (ng/mL) Amphetamines 500 Barbiturates 200 Benzodiazepine metabolites 200 Cocaine metabolites 150 Cannabinoids 50 Opiates 300 Pcp 25 Specimen was received without chain of custody. Results should be used for medical purposes only. 4 Suboptimal collection technique may reduce sensitivity of test. Refer to the [facility] Test Catalog for collection information: [email or web address] As with all diagnostic procedures, the laboratory results obtained should be used in conjunction with other clinical information available to the physician, including confirmation by another method, as applicable. 5 Medical Educator: [id number] Procedures Description No Information Available Medical Devices Description No Information Available Encounters Type Date Location Provider Dx Diagnosis Office Visit 09/29/2019 [facility] Gifty Zhong, B34.9 Viral infection, 11:00a Medicine - [facility], FACP unspecified S10.86xA Insect bite of other specified part of neck, init encntr F41.9 Anxiety disorder, unspecified M79.10 Myalgia, unspecified site R63.0 Anorexia Assessments Date Code Description Provider 12/23/2019 F41.9 Anxiety disorder, unspecified Gifty Zhong M.D., FACP 12/23/2019 G47.00 Insomnia, unspecified Gifty Zhong M.D., FACP 12/23/2019 R05 Cough Gifty hZong M.D., FACP 12/23/2019 Z72.0 Tobacco use Gifty Zhong M.D., FACP 11/17/2019 F41.9 Anxiety disorder, unspecified Gifty Zhong M.D., FACP 11/17/2019 Z72.0 Tobacco use Gifty Zhong M.D., FACP 11/17/2019 H61.21 Impacted cerumen, right ear Gifty Zhong M.D., FACP 09/29/2019 B34.9 Viral infection, unspecified Gifty Zhong M.D., FACP 09/29/2019 S10.86xA Insect bite of other specified part of Gifty Zhong M.D. , FACP neck, initial encounter 09/29/2019 F41.9 Anxiety disorder, unspecified Gifty Zhong M.D., FACP 09/29/2019 M79.10 Myalgia, unspecified site Gifty Zhong M.D., FACP 09/29/2019 R63.0 Anorexia Gifty Zhong M.D., FACP Plan of Treatment Future Appointment(s):01/27/2020 3:30 pm - [facility] - Gifty Zhong M.D., FACPF41.9 Anxiety disorder, unspecifiedNew Medication:Bupropion Hydrochloride ER (SR) 100 mg - sig 1 by mouth in the amComments:ANXIETY:I am glad to know that you are doing better.Continue present management. We talked about adding a medication called buproprion which is slightly activating, it also helps with tobacco craving.Follow up:1-2 bujfgjM73.00 Insomnia, unspecifiedNew Medication: Trazodone HCL 50 mg - take 1/2-1 tablets by mouth at bedtime as needed for isomniaComments:INSOMNIA:We discussed sleep hygiene today. Try not to go to bed until you are sleepy and do your best to keep a bedtime routine. Turn the clock away so that you are not checking the time during the night: doing so wakes up more parts of your brain. No screens in bed.You may try diphenhydramine (25 mg) which is available OTC. Some people find that melatonin is helpful. Today we talked about trazodone as a possible strategy. I have sent an rx to your pharmacy. Start with the smallest possible amount, just in case you are one of those folks for whom it causes morning grogginess. Continue using the CPAP.R05 CoughNew Medication:Flovent HFA 44 mcg/Act - 1-2 puffs twice daily for 2-3 weeksBenzonatate 100 mg - 1-2 by mouth every 8 hours as neededComments:COUGH: This is most likely due to mechanical issues. I think your symptoms are referable to reactiveairways and post nasal drip.I recommend aggressive symptom management with an inhaled steroid spray and cough suppression.I have sent an rx for Flovent to be used twice daily for 10 days. I have sent an rx for benzonatate to your pharmacy. You may use Mucinex and nasal saline as needed. You may also use phenylephrine or pseudoephedrine ( decongestants) as needed, however be aware that these meds are stimulating. Keep well hydrated. Having a humidifier running in your bedroom might be helpful.Callback if you experience any symptoms consistent with a secondary bacterial process (ie, fevers or chills, heavier cough, shortness of breath). It is possible that an antibiotic may have utility if thisoccurs.Z72.0 Tobacco useComments:TOBACCO USE:Do your best to limit how many cigarettes you smoke a day.I fully support any and all your efforts to quit. We discussed different nicotine replacement systems (patches, gum, lozenges) medications like Chantix and bupropion and behavioral strategies like hypnosis. For further help or information you can call the [facility] Smokers Quit Line at 3-709-YV-QUITS (886- 8758), or www.[place] Functional Status Description No Information Available Mental Status Description No Information Available Referrals Description No Information Available
--- OUTSIDE RECORDS SUMMARY | 2020-01-06 11:33 | XMS REPORT ---
:1990 Author Organization [facility] Care Team Providers Name Role Phone KALEN PAREDES Primary Care Physician Unavailable Allergies, Adverse Reactions, Alerts Allergy Code CodeSystem Reaction Severity Criticality Status Start Substance Date Moderate Medications Medication Medication Medication Start Stop Route Dose Status Fill Code CodeSystem Date Date Instructions RxNorm Relevant diagnostic tests/laboratory data Narrative No Information Procedures Procedure Code CodeSystem Target Date of Status Service Device Device Device Name Site Procedure Delivery Code Name UID Location Psychother [id number] SNOMED-CT () 2019-10-28 completed Mental apy, 45 4 Health- minutes [place] with [facility] patient [address] [place] [address], [id number] Psychother [id number] SNOMED-CT () 2019-11-03 completed Mental apy, 45 4 Health- minutes [place] with [facility] patient [address] [place] [address], [id number] Psychother [id number] SNOMED-CT () 2019-12-02 completed Mental apy, 45 4 Health- minutes [place] with [facility] patient [address] [place] [address], [id number] SNOMED-CT () 2019-10-[address], [id number] SNOMED-CT () 2019-10-[address], [id number] SNOMED-CT () 2019-06-[address], [id number] SNOMED-CT () [address], [id number] Encounters/Encounter Diagnoses Encounter Name Encounter Diagnosis Diagnosis Diagnosis Date of Service Code Code Name CodeSystem Diagnosis Delivery Location [facility] [address] SNOMED-CT 2019-12-14 [facility] , , , Vital Signs No Information Social History Element Description Description Start End Code CodeSystem AdditionalInfo Date Date SexAssignedAtBirth Male 1989-11 M AdministrativeGender 12-07 Hospital Discharge Instructions Reason For Referral Medical Equipment FDA Assessments
--- OUTSIDE RECORDS SUMMARY | 2020-01-06 11:33 | XMS REPORT | Summary of Care ---
:1990 Author Organization [facility] Address [address] [address] Care Team Providers Name Role Phone Elie Diaz Primary Care Provider Reason for Visit Reason Comments Anxiety pt states he was put on lexapro a few days ago at a [facility] facility by Dr Herbert due to anxiety. it has been making him feel tired. Encounter Details Date Type Department Care Team Description 12/02/2019 Office Visit [facility] Miriam Arevalo, Anxiety and depression Practice PA-C (Primary Dx) [address] [place] [address] [place] [address] [phone] Allergies No Known Allergiesdocumented as of this encounter (statuses as of 12/02/2019) Medications Medication Sig Dispensed Refills Start Date End Date Status escitalopram (LEXAPRO) TAKE 1 TABLET BY 0 11/17/2019 Active 10 MG Oral Tab MOUTH ONCE DAILY ALPRAZolam (XANAX) 0.25 TAKE 1 2 TO 1 0 11/30/2019 Active MG Oral Tab (ONE HALF TO ONE) TABLET BY MOUTH THREE TIMES DAILY NEEDED . DO NOT EXCEED 2 PER 24 HOURS documented as of this encounter (statuses as of 12/02/2019) Active Problems No known active problemsdocumented as of this encounter (statuses as of 2019) Social History Tobacco Use Types Packs/Day Years Used Date Former Smoker Quit: 12/13/2013 Smokeless Tobacco: Never Used Alcohol Use Drinks/Week oz/Week Comments Yes 1 Shots of liquor 1.0 Sex Assigned at Date Recorded Not on file Job Start Date Occupation Industry Not on file Not on file Not on file Travel History Travel Start Travel End No recent travel history available. documented as of this encounter Last Filed Vital Signs Vital Sign Reading Time Taken Comments Blood Pressure 122/78 12/02/2019 7:33 AM EST Pulse 76 12/02/2019 7:33 AM EST Temperature 36.6 12/02/2019 7:33 AM EST C (97.9 F) Respiratory Rate - - Oxygen Saturation 94% 12/02/2019 7:33 AM EST Inhaled Oxygen Concentration - - Weight 102.1 kg (225 lb) 12/02/2019 7:33 AM EST Height 168.9 cm (5' 6.5") 12/02/2019 7:33 AM EST Body Mass Index 35.77 12/02/2019 7:33 AM EST documented in this encounter Patient Instructions Patient InstructionsDoMiriam cummins PA-C - 12/02/2019 7:20 AM ESTDiscussed that lexapro can make you feel tired until your body adjusts to it Says He takes it at 10pm Recommend he take it with dinner Continue seeing therapist, keep well hydrated, healthy diet, regular exericse Make appointment to re-establish with Dr. Diaz documented in this encounter Progress Notes Miriam Arevalo PA-C - 12/02/2019 7:20 AM EST PATIENT: See Alex : 1990 DATE OF SERVICE: 12/02/2019 REFERRING PRACTITIONER: Self-Referred PRIMARY CARE PROVIDER: Elie Diaz HAS NOT SEEN DR. DIAZ SINCE 02/28/16 -- NEED TO RE-ESTABLISH CHIEF COMPLAINT: Chief Complaint Patient presents with Anxiety pt states he was put on lexapro a few days ago at a [facility] facility by Dr Herbert due to anxiety. it has been making him feel tired. Subjective HISTORY OF PRESENT ILLNESS: See Alex is a 29-y.o. male who presents with anxiety Was seen at DR. Keon resendiz at [facility] 2 weeks ago, was started on lexapro 10mg Says it is making him feel tired but mood is much improved Had very bad breakup with girlfriend 4 months ago Has been seeing therapist, has appointment at 3 today Goes to gym every day, says it helps with mood Drinking plenty of water, but admits he has not been eating healthy the past 2- 4 months Has not drank alcohol in 4 months Denies suicidal thought Says yesterday had "bad day" -- took a xanax at bedtime -- helped with anxiety and falling asleep Does not want to see DR. Herbert anymore, did not feel she was helpful -- wants to re-establish with Dr. Diaz Denies fever, chills, nausea, vomiting, diarrhea, chest pains, SOB Past Medical History: Diagnosis Date Obesity No past surgical history on file. Family History Problem Relation Age of Onset Asthma Brother Current Outpatient Medications Medication Sig ALPRAZolam (XANAX) 0.25 MG Oral Tab TAKE 1 2 TO 1 (ONE HALF TO ONE) TABLET BY MOUTH THREE TIMES DAILY NEEDED . DO NOT EXCEED 2 PER 24 HOURS escitalopram (LEXAPRO) 10 MG Oral Tab TAKE 1 TABLET BY MOUTH ONCE DAILY No current facility-administered medications for this visit. No Known Allergies Social History Socioeconomic History Marital status: Unknown Spouse name: Not on file Number of children: Not on file Years of education: Not on file Highest education level: Not on file Occupational History Not on file Social Needs Financial resource strain: Not on file Food insecurity Worry: Not on file Inability: Not on file Transportation needs Medical: Not on file Non-medical: Not on file Tobacco Use Smoking status: Former Smoker Last attempt to quit: 12/13/2013 Years since quittin.9 Smokeless tobacco: Never Used Substance and Sexual Activity Alcohol use: Yes Alcohol/week: 1.0 standard drinks Types: 1 Shots of liquor per week Drug use: No Sexual activity: Never Lifestyle Physical activity Days per week: Not on file Minutes per session: Not on file Stress: Not on file Relationships Social connections Talks on phone: Not on file Gets together: Not on file Attends scientology service: Not on file Active member of club or organization: Not on file Attends meetings of clubs or organizations: Not on file Relationship status: Not on file Intimate partner violence Fear of current or ex partner: Not on file Emotionally abused: Not on file Physically abused: Not on file Forced sexual activity: Not on file Other Topics Concern Not on file Social History Narrative Park REVIEW OF SYSTEMS: Skin: negative skin lesions Eyes: negative visual blurring Ears/Nose/Throat: negative rhinorrhea, sore throat, sinus pressure, post nasal drip Respiratory: negative cough Cardiovascular: negative chest pain Gastrointestinal: negative abdominal pain, constipation, diarrhea, nausea or vomiting Genitourinary: negative burning on urination, dysuria Musculoskeletal: negative arthritis/joint pain Neurologic: negative numbness or tingling of feet or hands Psychiatric: positive anxiety Hematologic/Lymphatic/Immunologic: negative allergies Endocrine: negative diabetes or hot flashes/sweats Objective PHYSICAL EXAMINATION: VITALS: BP 122/78 (BP Location: Right arm, Patient Position: Sitting) | Pulse 76 | Temp 97.9 F (36.6 C) | Ht 5' 6.5" (1.689 m) | Wt 225 lb (102.1 kg) | SpO2 94% | BMI 35.77 kg/m Body mass index is 35.77 kg/m. General appearance - alert, no distress, cooperative, oriented times 3 Skin - Skin color, texture, turgor normal. No rashes or lesions. Head - Normocephalic. No masses, lesions, tenderness or abnormalities Eyes - conjunctivae/corneas clear. PERRL, EOM's intact. Oropharynx - Lips, mucosa, and tongue normal. Teeth and gums normal. Oropharynx normal. Neck - Neck supple, FROM. No cervical or supraclavicular adenopathy. Thyroid normal, no enlargement Lungs - Good diaphragmatic excursion. Lungs clear. Chest symmetrical. Normal breath sounds. Heart - RRR. No murmurs, clicks or gallops. No peripheral edema. . IMPRESSION: ICD-9-CM ICD-10-CM 1. Anxiety and depression 300.00 F41.9 311 F32.9 Plan PLAN: Discussed that lexapro can make you feel tired until your body adjusts to it Says He takes it at 10pm Recommend he take it with dinner Continue seeing therapist, keep well hydrated, healthy diet, regular exericse Make appointment to re-establish with Dr. Diaz More than 50% of the physician/patient and or family encounter was spent with counseling and coordination of care. Total visit time involved was 30 minutes. Author: Miriam Arevalo PA-C 12/02/2019 07:33 documented in this encounter Plan of Treatment Date Type Specialty Care Team Description 01/06/2020 Office Visit Family Practice Elie Diaz MD [address] [place] [address] [phone] Health Maintenance Due Date Last Done Comments DTaP/Tdap/Td Vaccines (1 - 1999 Tdap) HIV SCREENING 2003 INFLUENZA VACCINE (#1) 2019 DEPRESSION SCREENING 12/02/2020 12/02/2019, 12/02/2019 HEPATITIS A IMMUNIZATION Aged Out No longer eligible based SERIES on patient's age to complete this topic HPV IMMUNIZATION SERIES Aged Out No longer eligible based on patient's age to complete this topic MENINGOCOCCAL VACCINE IMM Aged Out No longer eligible based on patient's age to complete this topic PNEUMOCOCCAL 0-64 YRS Aged Out No longer eligible based on patient's age to complete this topic documented as of this encounter Results Not on filedocumented in this encounter Visit Diagnoses Diagnosis Anxiety and depression Dysthymic disorder documented in this encounter Insurance Payer Benefit Plan / Subscriber ID Effective Dates Phone Address Type Group MICKY [employer]ika [employer] xxxxxxxxxxx 2019-Present Micky PLAN Guarantor Name Account Type Relation to Date of Phone Billing Address Patient See Alex Personal/Famil 1990 [id number] [place] [address] 0 (Work) documented as of this encounter
--- OUTSIDE RECORDS SUMMARY | 2020-01-06 11:33 | XMS REPORT ---
:1990 Author Organization [facility] Care Team Providers Name Role Phone ALIA PAREDESEW Primary Care Physician Unavailable Allergies, Adverse Reactions, Alerts Allergy Code CodeSystem Reaction Severity Criticality Status Start Substance Date Moderate Medications Medication Medication Medication Start Stop Route Dose Status Fill Code CodeSystem Date Date Instructions RxNorm Relevant diagnostic tests/laboratory data Narrative No Information Procedures Procedure Code CodeSystem Target Date of Status Service Device Device Device Name Site Procedure Delivery Code Name UID Location Psychother 1524930 SNOMED-CT () 2019-10-28 completed Mental apy, 45 4 Health- minutes [place] with [facility] patient [address] [place] [address], [id number] [id number] Psychother [id number] SNOMED-CT () 2019-11-03 completed Mental apy, 45 4 Health- minutes [place] [facility] patient [address] [place] [address], [phone] [phone] Psychother [id number] SNOMED-CT () 2019-12-02 completed Mental apy, 45 4 Health- minutes [place] with [facility] patient [address] [place] [address], [id number] [id number] SNOMED-CT () 2019-12-[address], [id number] SNOMED-CT () 2019-10-[address], [id number] SNOMED-CT () 2019-10-[address], [id number] SNOMED-CT () 2019-06-[address], [id number] SNOMED-CT () [address], [place], [id number] Encounters/Encounter Diagnoses Encounter Name Encounter Diagnosis Diagnosis Diagnosis Date of Service Code Code Name CodeSystem Diagnosis Delivery Location [facility] [address] [facility] 2019-12-14 Behavioral Individual [facility] [address] [place], [place], [phone] Vital Signs No Information Social History Element Description Description Start End Code CodeSystem AdditionalInfo Date Date SexAssignedAtBirth Male 1989-11 M AdministrativeGender 12-07 Hospital Discharge Instructions Reason For Referral Medical Equipment FDA Assessments
--- OUTSIDE RECORDS SUMMARY | 2020-01-06 11:34 | XMS REPORT ---
:1990 Author Organization [facility] Care Team Providers Name Role Phone Rogelio Osei Primary Care Physician Unavailable Allergies, Adverse Reactions, Alerts Allergy Code CodeSystem Reaction Severity Criticality Status Start Substance Date Moderate Medications Medication Medication Medication Start Stop Route Dose Status Fill Code CodeSystem Date Date Instructions RxNorm Relevant diagnostic tests/laboratory data Narrative No Information Procedures Procedure Code CodeSystem Target Date of Status Service Device Device Device Name Site Procedure Delivery Code Name UID Location SNOMED-CT () 2019-06-[address], [id number] SNOMED-CT () [address], [id number] SNOMED-CT () 2019-10-[address], [id number] SNOMED-CT () 2019-10-[address], [id number] Psychother 7526161 SNOMED-CT () 2019-10-28 completed Mental [facility], 45 4 Health- minutes [facility] patient [address] [place] [address], [phone] Encounters/Encounter Diagnoses Encounter Name Encounter Diagnosis Diagnosis Diagnosis Date of Service Code Code Name CodeSystem Diagnosis Delivery Location Psychotherapy - 12579 SNOMED-CT 2019-11-03 Behavioral Individual [facility] , , , Vital Signs No Information Social History Element Description Description Start End Code CodeSystem AdditionalInfo Date Date SexAssignedAtBirth Male 1989-1 M AdministrativeGender 1-15 Hospital Discharge Instructions Reason For Referral Medical Equipment FDA Assessments
--- OUTSIDE RECORDS SUMMARY | 2020-01-06 11:34 | XMS REPORT | Continuity of Care Document ---
:1990 External Reference #:[id number] Author Name Gifty Zhong M.D., FACP (transmitted by agent of provider Grace Gil) Address [address] [place] [address] Care Team Providers Name Role Phone Ramsey Mcfadden MD - Family Care Team Information Airline Reservation Agent Medicine Gifty Zhong MD - Internal Medicine Care Team Information Airline Reservation Agent Problems Active Problems Provider Date Chronic fatigue [...] smoker, smokes every day Smoking Status Reviewed: 11/17/19 Patient is a current smoker, smokes every day Exercise Swims 2 times a week Type/Frequency Allergies, Adverse Reactions, Alerts Description No Known Drug Allergies Medications Active Medications SIG Qnty Indications Ordering Provider Date Alprazolam 1/2 -1 by mouth 14tabs F41.9 Gifty Zhong M.D., 11/17/2019 0.25mg three times FACP Tablets daily as needed Escitalopram Oxalate 1 by mouth every 30tabs F41.9 Gifty Zhong M.D., day FACP 10mg Tablets Cpap Mask And cpap supplies - 1units Josemanuel Stuart, 10/05/2018 Supplies Brooke marks Device cushion, tubing, filters, for sleep apnea History Medications Doxycycline 1 cap by mouth 14caps S10.86xA Martha Parra, 09/29/2019 - Monohydrate twice a day M.D. 10/27/2019 100mg Capsules Immunizations Description No Information Available Vital Signs Date Vital Result Comment 11/17/2019 3:40pm Height 66 inches 5'6" Weight 229.00 lb Heart Rate 75 /min BP Systolic Sitting 137 mmHg BP Diastolic Sitting 69 mmHg O2 % BldC Oximetry 95 % BMI (Body Mass Index) 37.0 kg/m2 09/29/2019 11:19am Height 66 inches 5'6" Weight 240.00 lb Heart Rate 100 /min BP Systolic Sitting 118 mmHg BP Diastolic Sitting 62 mmHg Body Temperature 101.2 F O2 % BldC Oximetry 98 % BMI (Body Mass Index) 38.7 kg/m2 Results Test Acquired Date Facility Test Result H/L Range Note CBC Auto 2019 [facility] White Blood 10.1 10^3/uL Normal 3.5-10.[address] [place] [address] [phone] Red Blood Count 4.84 10^6/uL Normal 4.18-5.48 [...] Blood Cells % 0.0 Comp Metabolic 2019 [facility] Sodium 137 mmol/L Normal 135-145 Panel [address] [place] [address] [phone] Potassium 4.1 mmol/L Normal 3.5-5.0 Chloride 105 [...] Egfr 117.6 >60 1 Laboratory test 2019 [facility] Acetaminophen < 15 g/mL 2 finding [address] [place] [address] [phone] Alcohol < 10 mg/dL Normal <10 Salicylate < 2.50 mg/dL <30 TSH (Thyroid Stim Horm) 0.71 mcIU/mL Normal 0.34-5.60 Urinalysis Profile 2019 [facility] Urine Color Yellow [address] [place], [place] [id number] [phone] Urine Appearance Clear Urine Specific Warriors Mark 1.008 Low 1.010-1.030 Urine pH 7.0 Normal 5-9 Urine Urobilinogen Negative Negative Urine Ketones Negative Negative Urine Protein Negative Negative Urine Leukocytes Negative Negative Urine Blood Negative Negative Urine Nitrite Negative Negative Urine Bilirubin Negative Negative Urine Glucose Negative Negative Urine Drug 2019 [facility] Urine None Detected None Detect SCR ED & [address] [facility] [place] [place] [address] Screen [phone] Urine Barbiturates Screen None Detected None Detect Urine Benzodiazepine Screen None Detected None Detect Urine Cannabinoids Screen None Detected None Detect Urine Opiates Screen None Detected None Detect Urine Phencyclidine Screen None Detected None Detect 3 Urine Cocaine Screen None Detected None Detect Laboratory test 09/29/2019 [facility] Lyme Screen W/ Negative Negative finding [address] [place] [address] [phone] Influenza A & B 09/29/2019 [facility] Flu AB (SEE NOTE) [address] [place] [address] [phone] Influenza A Molecular NEGATIVE Negative 5 Influenza [...] reduce sensitivity of test. Refer to the [facility] Test Catalog for collection information: [email or web address] As with all diagnostic procedures, the laboratory results obtained should be used in conjunction with other clinical information available to the physician, including confirmation by another method, as applicable. 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 Agent Internal Giftywillie Zhong, B34.9 Viral infection, 11:00a Medicine - Ccmob M.Dennis, FACP unspecified S10.86xA Insect bite of other specified part of neck, init encntr F41.9 Anxiety disorder, unspecified M79.10 Myalgia, unspecified site R63.0 Anorexia Assessments Date Code Description Provider 11/17/2019 F41.9 Anxiety disorder, unspecified Gifty Zhong M.D., FACP 11/17/2019 Z72.0 Tobacco use Gifty Zhong M.D., FACP 11/17/2019 H61.21 Impacted cerumen, right ear Gifty Zhong M.D., FACP 09/29/2019 B34.9 Viral infection, unspecified Gifty Zhong M.D., FACP 09/29/2019 S10.86xA Insect bite of other specified part of Gifty Zhong M.D. , [facility] neck, initial encounter 09/29/2019 F41.9 Anxiety disorder, unspecified Gifty Zhong M.D., FACP 09/29/2019 M79.10 Myalgia, unspecified site Gifty Zhong M.D., FACP 09/29/2019 R63.0 Anorexia [facility]., [facility] Plan of Treatment Future Appointment(s):12/23/2019 3:30 pm - Gifty Zhong M.D., FACP at [facility] Internal Medicine - [facility]11/17/2019 - Gifty Zhong M.D., FACPF41.9 Anxiety disorder, unspecifiedNew Medication:Alprazolam 0.25 mg - 1/2 -1 by mouth three times daily as neededEscitalopram Oxalate 10 mg - 1 by mouth every dayComments: DEPRESSION/ANXIETY: We talked about counselling and the role of pharmacotherapy. It sounds like you have been on some medications in the past.I have sent an rx for Lexapro to your pharmacy. I have given you some written information about resources in the community. We also discussed the potential for habituation with benzodiazepines and the risk of substance abuse and withdrawal.Lastly, we talked about how to proceed if you feel desperate: there is someone from my practice available 15/06 ([phone]) and the Emergency Department ([phone]) is always an option.Follow up:1 lmssaB30.0 Tobacco useComments:TOBACCO USE:Do your best to limit how many cigarettes you smoke a day: cutting back counts! I fullysupport any and all your efforts to quit. We discussed different nicotine replacement systems (patches, gum, lozenges) medications like Chantix and bupropion and behavioral strategies like hypnosis. For further help or information you can call the [facility] Smokers Quit Line at 1 -249-115-TM-LWIGI ([phone]), or www.NTN Buzztime61.21 Impacted cerumen, right earComments:CERUMEN:You had your right ear irrigated today. You may wish to purchase an OTC wax removal kit (like Debrox). Functional Status Description No Information Available Mental Status Description No Information Available Referrals Description No Information Available
[2020-01-06 11:40] VITALS: BP 116/76
--- NOTE | 2020-01-06 12:03 | UC ---
Hand/Wrist HPI - HPI Summary HPI Summary: Patient presented to urgent care with a significant other. Patient is a predominantly right-hand dominant. Patient does swim and has recently started lifting weights. Patient presents complaining of 2 weeks of progressive left wrist pain that extends to his forearm. Patient states pain is most in the dorsum of his forearm but does move laterally. States that time and was weak. No color changes. No temperature changes. Patient has not taken anything for pain. Patient denies any elbow or shoulder pain. Patient has no direct trauma. Patient's of medications as undertaken in the EMR triage review this visit. - History Of Current Complaint Chief Complaint: UCUpperExtremity Stated Complaint: WRIST INJURY Time Seen by Provider: 01/06/20 11:49 Hx Obtained From: Patient, Family/Cytotechnologist Onset/Duration: Gradual Onset Severity Initially: Moderate Severity Currently: Moderate Pain Intensity: 7 Pain Scale Used: 0-10 Numeric Aggravating Factor(s): Movement, Lifting, Flexion, Extension Alleviating Factor(s): Rest - Allergies/Home Medications Allergies/Adverse Reactions: Allergies Allergy/AdvReac Type Severity Reaction Status Date / Time No Known Allergies Allergy Verified 01/06/20 11:40 Home Medications: Home Medications ALPRAZolam [Xanax] 1 mg PO DAILY WITH MEAL 01/06/20 [History Confirmed 01/06/20] Bupropion XL* [Wellbutrin XL *] 150 mg PO DAILY 01/06/20 [History Confirmed ] Citalopram Hydrobromide [Celexa] 10 mg PO DAILY WITH MEAL 01/06/20 [History Confirmed 01/06/20] traZODone TAB* [Desyrel TAB*] 50 mg PO BEDTIME 01/06/20 [History Confirmed 01/06] PMH/Surg Hx/FS Hx/Imm Hx Previously Healthy: Yes - Surgical History Surgical History: None - Family History Known Family History: Positive: Other - CA, Non-Contributory Negative: Cardiac Disease, Hypertension, Diabetes, Seizure Disorder Family History: Father with anxiety. Maternal grandfather with anxiety. - Social History Occupation: Employed Full-time Lives: With Family Alcohol Use: None Substance Use Type: Marijuana Smoking Status (MU): Light Every Day Tobacco Smoker Household Exposure Type: Cigarettes Review of Systems All Other Systems Reviewed And Are Negative: Yes Constitutional: Positive: Negative Skin: Positive: Negative Neurovascular: Positive: Other Musculoskeletal: Positive: Other: - pain Neurological/Mental Status: Positive: Paresthesia Is Patient Immunocompromised?: No Physical Exam - Summary Physical Exam Summary: Vital Signs Reviewed: Yes A+Ox3, no distress Eyes: Conjunctiva Clear ENT: Hearing grossly normal neck: supple Respiratory: Positive: No respiratory distress, No accessory muscle use Cardiovascular: skin color reflect adequate perfusion 2+ radial, 2+ ulnar CBT < 2 sec Musculoskeletal Exam: + flex/ext elbow + pronate/supinate with increased pain radiating to elbow + flex/ext wrist with pain on extension + thumb up, a ok, finger cross, finger spread + TTP along dorsal surface of wrist with direct palp. Neurological: Positive: Alert, ambulatory without difficulty distal intact Psychological: Positive: Normal Response To examiner Skin: Positive: no rash, no ecchymosis Triage Information Reviewed: Yes Vital Signs: Initial Vital Signs Temp 98.6 F 01/06/20 11:34 Pulse 71 01/06/20 11:34 Resp 18 01/06/20 11:34 BP 116/76 01/06/20 11:34 Pulse Ox 96 01/06/20 11:34 Diagnostics - Radiology No standard instances Radiology Interpretation Completed By: Radiologist - Patient Name: NAI MITTAL Medical Record#: [id number] Ordering Physician: Clay LYLES Acct.#: [id number] : 1990 Age: 29 Sex: M Location: [facility] Exam Date: 01/06/20 1142 ADM Status: REG ER Order Information: WRIST LEFT 3+ VWS Accession Number: [id number] CPT : 76600 Indication: Left wrist pain. 3 views of the wrist demonstrates no fracture. No other bone or joint abnormality is identified. IMPRESSION: NO FRACTURE OF THE WRIST IS NOTED. < Electronically signed by Regina Jansen MD in OV> 01/06/20 1201 Dictated By: Regina Jansen MD Dictated Date/Time: 01/06/20 1201 Transcribed Date/Time: 01/06/20 1201 Copy to: CC:Raine Lopez MD; Gifty Zhong MD; Clay LYLES Imaging - [facility] - [facility] - [facility] [id number] [place] [id number] [place] [id number] ph [phone] ph [phone] ph ) This report is only to be considered final once signed by the Provider(s) as displayed in the "<Electronically Signed by >" field (s). Absence of a signature indicates the report is in a draft status and still needs to be finalized. In the event this document was created by someone other than the signing Provider, the individual initiating the document will be listed in the "Entered by:" or "Dictated by:" meza. 1 of 1 Hand/Wrist Course/Dx - Course Course Of Treatment: Patient presents to urgent care for evaluation of pain in the left wrist. Patient states it's been for 2 weeks and now radiates to the lateral aspect of his forearm. Patient denies any direct trauma. Patient is right-hand dominant. 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 On exam vital signs are stable. Patient does have pain in the dorsum of his wrist that extends to his mid forearm. Distal CSM intact. No lymphadenopathy. Suspect this is likely tendinitis. We'll page patient in thumb spica. Motrin. Ice. Rest. Elevate. Return precautions. Recommend patient follow up with sports medicine. Patient agreement. Contact will be given. Patient was at work for the next 2 days. - Differential Dx/Diagnosis Provider Diagnosis: Left wrist tendonitis Discharge ED - Sign-Out/Discharge Documenting (check all that apply): Patient Departure All imaging exams completed and their final reports reviewed: Yes - Discharge Plan Condition: Stable Disposition: HOME Patient Education Materials: Tendinitis (ED) Referrals: Gifty Zhong MD [Primary Care Provider] - Additional Instructions: -wear splint for comfort and support -apply ice (20 min at a time) every 2-3 hours for the next 2 days - Alternate ibuprofen (advil, Motrin) 600mg and tylenol every 3 hours for pain. Take with food. Do NOT take for more than 4-5 days -Contact the sports medicine office today to arrange a follow-up appointment next week. Contact your doctor or return with questions or concerns - Billing Disposition and Condition Condition: STABLE Disposition: Home
[2020-01-06] MEDS ORDERED: Ibuprofen TAB* 600 MG PO ONE (12:26)
== END 2020-01-06 12:50 | disposition home or self-care (01) ==
LOC: UCEAST 11:26
DX: M77.9 Enthesopathy, unspecified (principal); F17.210 Nicotine dependence, cigarettes, uncomplicated; X50.0XXA Overexertion from strenuous movement or load, initial encounter; Y92.9 Unspecified place or not applicable
CPT/HCPCS: 99213; A9270-GY; G0463

== ENCOUNTER 2021-05-25 20:33 | Inpatient (IN) ==
[2021-05-25 21:52] LABS: Urine Appearance Clear; Urine Bilirubin Negative (Negative); Urine Blood Negative (Negative); Urine Color Straw; Urine Glucose Negative (Negative); Urine Ketones Negative (Negative); Urine Nitrite Negative (Negative); Urine Protein Negative (Negative); Urine Specific Gravity 1.004 (1.002-1.030); Urine Urobilinogen Negative (Negative)
[2021-05-25 21:59] LABS: ABS Basophils 0.1 10^3/ul (0-0.2); ABS Lymphocytes 1.2 10^3/ul (1.0-4.8); ABS Monocytes 0.5 10^3/ul (0-0.8); ABS Neutrophils 9.8 10^3/ul (1.5-7.7); Eosinophil % 0.4 %; Hematocrit 43 % (42-52); Hemoglobin 14.3 g/dL (14.0-18.0); Lymphocyte % 10.4 %; Mean Corpuscular HGB Conc 33 g/dL (31-36); Mean Corpuscular Hemoglobin 32 pg (27-31); Mean Corpuscular Volume 95 fL (80-94); Nucleated Red Blood Cells % 0.1; Platelet Count 174 10^3/uL (150-450); Red Blood Count 4.54 10^6 /uL (4.18-5.48); Red Cell Distribution Width 14 % (10-15); White Blood Count 11.6 10^3/uL (3.5-10.8)
[2021-05-25 22:19] LABS: Acetaminophen < 15 mcg/mL; Alcohol, S < 10 mg/dL (<10); Salicylate < 2.50 mg/dL (<30)
[2021-05-25 22:23] LABS: Urine Benzodiazepine Screen None Detected (None Detect); Urine Cannabinoids Screen None Detected (None Detect); Urine Opiates Screen None Detected (None Detect)
[2021-05-25 22:31] LABS: Albumin 4.9 g/dL (3.2-5.2); Anion Gap 8 mmol/L (2-11); CO2 Carbon Dioxide 21 mmol/L (22-32); Calcium 9.5 mg/dL (8.6-10.3); Chloride 106 mmol/L (101-111); Sodium 135 mmol/L (135-145); TSH Ultra Thyroid Stim Horm 1.66 mcIU/mL (0.34-5.60)
[2021-05-25 22:36] LABS: ALT 51 U/L (7-52); AST 27 U/L (13-39); Albumin/Globulin Ratio 2.1 (1-3); Alkaline Phosphatase 37 U/L (35-149); Blood Urea Nitrogen 14 mg/dL (6-24); EGFR African American 107.3 (>60); EGFR Non-African American 88.6 (>60); Globulin 2.3 g/dL (2-4); Glucose 129 mg/dL (70-100); Total Protein 7.2 g/dL (6.4-8.9)
[2021-05-28] MEDS ORDERED: Al Hydrox/Mg Hydrox/Simet LIQ 30 ML UDC PO PRN (10:16)
[2021-05-30 15:43] VITALS: BP 144/68
== END 2021-05-31 16:55 | disposition home or self-care (01) | DRG 751 ==
LOC: ED 20:33 → BSU 05-28 10:16
PROVIDERS: ADMIT Psychiatry & Neurology Psychiatry; ATTEND Psychiatry & Neurology Psychiatry